=== PATIENT | male | born 1995 | race Caucasian/White ===

== ENCOUNTER 2017-01-11 20:18 | Emergency (ER) | payer BC, OTHER ==
--- NOTE | 2017-01-11 20:27 | ER Document Report ---
ED Medical Screen (RME) - General Chief Complaint: L shoulder pain Stated Complaint: COLLAR BONE INJURY Time Seen by Provider: 01/11/17 20:25 Mode of Arrival: Ambulatory Information source: Patient TRAVEL OUTSIDE OF THE [place] IN LAST 30 DAYS: No - HPI Patient complains to provider of: Left Shoulder injury Onset: Just prior to arrival Onset/Duration: Sudden Quality of pain: Achy Severity: Moderate Pain Level: 3 Associated Symptoms: None Exacerbated by: Movement Relieved by: Denies Similar symptoms previously: No Recently seen / treated by doctor: No Notes: 01/11/17 20:26 Patient is a 21-year-old male who presents to the emergency room complaining of pain and injury to his left shoulder, he was playing soccer when he collided with another player causing him to fall to the ground onto the left shoulder, he denies pain or injury elsewhere, no head injury or loss of consciousness, he is declining pain medication at triage area, exam findings are consistent with AC separation, he will be sent for x-rays to confirm this - Related Data Allergies/Adverse Reactions: No Known Allergies Allergy (Unverified 09/20/11 09:57) Past Medical History Renal/ Medical History: Denies: Hx Peritoneal Dialysis - Immunizations Immunizations up to date: Yes Hx Diphtheria, Pertussis, Tetanus Vaccination: Yes
--- NOTE | 2017-01-11 21:12 | RADIOLOGY REPORT (SQ) ---
EXAM DESCRIPTION: CLAVICLE LEFT COMPLETED DATE/TIME: 01/11/2017 9:03 pm REASON FOR STUDY: injury COMPARISON: None. NUMBER OF VIEWS: Two views. TECHNIQUE: Frontal and angled images were acquired of the left clavicle. LIMITATIONS: None. FINDINGS: MINERALIZATION: Normal. BONES: Oblique distal left clavicular fracture which does not appear to involve the AC joint articula tion, 10 mm of inferior displacement of the distal fragment is present at the fracture site.No disloc ation. No worrisome bone lesions. SOFT TISSUES: Moderate swelling. No radiopaque foreign body. OTHER: No other significant finding. IMPRESSION: Oblique distal left clavicular fracture which does not appear to involve the AC joint ar ticulation, 10 mm of inferior displacement of the distal fragment is present at the fracture site. TECHNICAL DOCUMENTATION: JOB ID: [id number] [employer]- All Rights Reserved
--- NOTE | 2017-01-11 21:13 | RADIOLOGY REPORT (SQ) ---
EXAM DESCRIPTION: SHOULDER LEFT 2 OR MORE VIEWS COMPLETED DATE/TIME: 01/11/2017 9:03 pm REASON FOR STUDY: pain s/p injury COMPARISON: None. NUMBER OF VIEWS: Three views. TECHNIQUE: Internal rotation, external rotation, and Y view images acquired of the left shoulder. LIMITATIONS: None. FINDINGS: MINERALIZATION: Normal. BONES: Distal clavicular fracture with 10 mm inferior displacement sparing the AC joint. No addition al fracture or dislocation. No worrisome bone lesions. JOINTS: No dislocation. VISUALIZED LUNGS AND RIBS: No pneumothorax. No rib fracture. SOFT TISSUES: No radiopaque foreign body. OTHER: No other significant finding. IMPRESSION: Distal clavicular fracture with 10 mm inferior displacement sparing the AC joint. TECHNICAL DOCUMENTATION: JOB ID: [id number] [employer]- All Rights Reserved
--- NOTE | 2017-01-11 21:54 | ER Document Report ---
ED Extremity Problem, Upper - General Chief Complaint: L shoulder pain Stated Complaint: COLLAR BONE INJURY Time Seen by Provider: 01/11/17 20:25 Mode of Arrival: Ambulatory Notes: The patient is a 21-year-old male who presents with left shoulder and clavicle pain after he was playing soccer and collided with another player. He denies numbness, tingling, LOC or open wound. TRAVEL OUTSIDE OF THE [place] IN LAST 30 DAYS: No - Related Data Allergies/Adverse Reactions: No Known Allergies Allergy (Unverified 09/20/11 09:57) Past Medical History - General Information source: Patient - Social History Smoking Status: Unknown if Ever Smoked Family History: Reviewed & Not Pertinent Renal/ Medical History: Denies: Hx Peritoneal Dialysis - Immunizations Immunizations up to date: Yes Hx Diphtheria, Pertussis, Tetanus Vaccination: Yes Review of Systems - Review of Systems Notes: REVIEW OF SYSTEMS: CONSTITUTIONAL: -fevers, -chills EENT: -eye pain, -difficulty swallowing, -nasal congestion CARDIOVASCULAR:-chest pain, -syncope. RESPIRATORY: -cough, -SOB GASTROINTESTINAL: -abdominal pain, - nausea, -vomiting, -diarrhea GENITOURINARY: -dysuria, -hematuria MUSCULOSKELETAL: +left clavicle/shoulder pain, -back pain, -neck pain SKIN: -rash or skin lesions. HEMATOLOGIC: -easy bruising or bleeding. LYMPHATIC: -swollen, enlarged glands. NEUROLOGICAL: -altered mental status or loss of consciousness, -headache, - neurologic symptoms PSYCHIATRIC: -anxiety, -depression. ALL OTHER SYSTEMS REVIEWED AND NEGATIVE. Physical Exam - Vital signs Vitals: Temp Pulse Resp BP Pulse Ox 98.2 F 62 20 132/79 H 96 01/11/17 20:23 01/11/17 20:23 01/11/17 20:23 01/11/17 20:23 01/11/17 20:23 - Notes Notes: PHYSICAL EXAMINATION: GENERAL: Well-appearing, well-nourished and in no acute distress. HEAD: Atraumatic, normocephalic. EYES: Pupils equal round and reactive to light, extraocular movements intact, sclera anicteric, conjunctiva are normal. ENT: nares patent, oropharynx clear without exudates. Moist mucous membranes. NECK: Normal range of motion, supple without lymphadenopathy LUNGS: Breath sounds clear to auscultation bilaterally and equal. No wheezes rales or rhonchi. HEART: Regular rate and rhythm without murmurs ABDOMEN: Soft, nontender, normoactive bowel sounds. No guarding, no rebound. No masses appreciated. EXTREMITIES: Tenderness and step-off of left clavicle, no skin tenting, painful left shoulder ROM, no pitting or edema. No cyanosis. NEUROLOGICAL: Cranial nerves grossly intact. Normal speech, normal gait. Normal sensory and motor exams. PSYCH: Normal mood, normal affect. SKIN: Warm, Dry, normal turgor, no rashes or lesions noted. Course - Re-evaluation Re-evalutation: Pt with left clavicle fracture without skin tenting or neurovascular compromise. Placed in arm sling and instructed him to f/u with Ortho. Offered patient [place] for severe pain, but mom would like to hold off on narcotics. - Vital Signs Vital signs: Temp Pulse Resp BP Pulse Ox 98.2 F 62 20 132/79 H 96 01/11/17 20:23 01/11/17 20:23 01/11/17 20:23 01/11/17 20:23 01/11/17 20:23 - Diagnostic Test Radiology reviewed: Image reviewed, Reports reviewed Radiology results interpreted by me: Left clavicle x-ray: distal left clavicle fracture Discharge - Discharge Clinical Impression: Fracture of left clavicle Qualifiers: Encounter type: initial encounter Clavicle location: lateral end Fracture type : closed Fracture alignment: displaced Qualified Code(s): S42.032A - Displaced fracture of lateral end of left clavicle, initial encounter for closed fracture Condition: Stable Disposition: HOME, SELF-CARE Additional Instructions: Fractured Clavicle You have a broken collarbone (clavicle). This usually heals in three to six weeks, depending on the age of the patient and the severity of the fracture. Even badly crooked collarbone fractures are usually not "set" or operated on, just protected until healing is complete. Usual initial treatment is rest and ice packs. A clavicle strap is placed for most collarbone fractures, but some do better with only a sling. The physician will match the treatment to your fracture. If a clavicle strap was fitted, keep it in place. It may be removed for bathing or for washing the strap after the first week. You may adjust the tightness of the strap with the Velcro strips. It should not be so tight that the hands swell or go numb. No heavy lifting, work requiring the arms to be above the head, or school P.E. until healing is complete! Call the doctor or return at once if pain or swelling become severe, or if numbness develops in either arm. Prescriptions: Hydrocodone/Acetaminophen [[place] 5-325 mg Tablet] 1 tab PO Q6H PRN #9 tablet PRN Reason: Referrals: MONTRELL CLEVELAND, [ACTIVE STAFF] - Follow up as needed
[2017-01-11] MEDS ORDERED: IBUPROFEN 600 MG TABLET PO ONE (22:03)
[2017-01-11 22:16] VITALS: BP 136/86
== END 2017-01-11 22:16 | disposition home or self-care (01) ==
LOC: ER 20:18
DX: S42.032A Displaced fracture of lateral end of left clavicle, initial encounter for closed fracture (principal); W51.XXXA Accidental striking against or bumped into by another person, initial encounter; Y93.66 Activity, soccer
CPT/HCPCS: 99283

== ENCOUNTER 2017-05-02 15:40 | Emergency (ER) | payer OTHER ==
[2017-05-02 16:36] VITALS: BP 134/91
[2017-05-02] MEDS ORDERED: IBUPROFEN 800 MG TABLET PO ONE (16:45)
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
--- NOTE | 2017-05-02 21:13 | EKG REPORT ---
SEVERITY:- ABNORMAL ECG - SINUS RHYTHM PROBABLE RIGHT VENTRICULAR HYPERTROPHY INFERIOR Q WAVES, PROBABLY NORMAL VARIATION : Confirmed by: Awilda Grady 02-May-2017 21:13:01
== END 2017-05-02 18:02 | disposition home or self-care (01) ==
LOC: ER 15:40
DX: S80.212A Abrasion, left knee, initial encounter (principal); S80.211A Abrasion, right knee, initial encounter; S20.219A Contusion of unspecified front wall of thorax, initial encounter; S20.319A Abrasion of unspecified front wall of thorax, initial encounter; S30.810A Abrasion of lower back and pelvis, initial encounter; V47.5XXA Car driver injured in collision with fixed or stationary object in traffic accident, initial encounter; Y92.410 Unspecified street and highway as the place of occurrence of the external cause
CPT/HCPCS: 71020; 93005; 93010; 99284